=== PATIENT | female | born 1965 | race Caucasian/White ===

== ENCOUNTER 2020-12-02 07:42 | Observation (INO) ==
[~2020-12-02 07:42] MED LIST: MORPHINE SULFATE 15 MG TABLET.SA PO PRN; RINGER'S SOLUTION,LACTATED 1,000 ML IV PRN; ROPIVACAINE/CLONIDIN/KETOROLAC 50 ML SYRINGE IJ ONE; ROPIVACAINE/CLONIDIN/KETOROLAC 50 ML SYRINGE IJ PRN; TRANEXAMIC ACID IN NACL,ISO-OS 1,000 MG/100 ML BAG IV PRN; ceFAZolin SODIUM 1 GM VIAL IV PRN; ceFAZolin SODIUM 1 GM VIAL ONE
[2020-12-02] MEDS ORDERED: DEXTROSE 5%-0.5 NORMAL SALINE 1,000 ML IV PRN (09:55)
[2020-12-02] MEDS ORDERED: ceFAZolin SODIUM 1 GM VIAL ONE (10:44)
[2020-12-02] MEDS ORDERED: ROPIVACAINE/CLONIDIN/KETOROLAC 50 ML SYRINGE IJ ONE (10:44)
--- NOTE | 2020-12-02 10:52 | ANES ---
Anesthesia Pre Procedure Eval Vitals/Labs: Last Vital Signs Temp 36.6 C 12/02/20 07:54 Pulse 85 12/02/20 07:54 Resp 16 12/02/20 07:54 BP 119/60 12/02/20 07:54 Pulse Ox 96 12/02/20 07:54 HOME MEDICATIONS blood sugar diagnostic See Dose Instructions .ROUTE .MEDSUPPLY #20 ea 05/03/18 [Last Taken Unknown] fluticasone propionate 50 mcg/actuation nasal spray,suspension 2 spray BONIFACIO DAILY PRN 05/03/18 [Last Taken Unknown] metformin 500 mg tablet,extended release 24 hr 1,000 mg PO BID tab 05/03/18 [Last Taken 03/05/19] omeprazole 40 mg capsule,delayed release 40 mg PO DAILY 05/03/18 [Last Taken 03/05/19] pen needle, diabetic 31 gauge x 5/16" See Dose Instructions .ROUTE .MEDSUPPLY #30 ea 05/03/18 [Last Taken Unknown] polyethylene glycol 3350 17 gram/dose oral powder 17 g PO DAILY PRN g 05/03/18 [Last Taken 03/03/19] rosuvastatin 40 mg tablet 40 mg PO DAILY 05/03/18 [Last Taken 03/05/19] Gabapentin 800 mg PO TID 03/07/19 [Last Taken Unknown] amitriptyline 25 mg tablet 25 mg PO HS 09/24/20 [Last Taken Unknown] galcanezumab-gnlm 120 mg/mL subcutaneous pen injector 120 mg SUBCUT QMONTH 09/24/20 [Last Taken Unknown] insulin glargine 100 unit/mL (3 mL) subcutaneous pen 70 unit SUBCUT QPM ml 09/24/20 [Last Taken Unknown] estradiol 0.5 mg tablet 0.5 mg PO DAILY #30 tab 11/05/20 [Last Taken Unknown] baclofen 10 mg tablet 10 mg PO DAILY tab 11/06/20 [Last Taken Unknown] hydrocodone 7.5 mg-acetaminophen 325 mg tablet 1 tab PO Q8H PRN tab 11/06/20 [Last Taken Unknown] levocetirizine 5 mg tablet 5 mg PO DAILY tab 11/06/20 [Last Taken Unknown] propranolol 10 mg tablet 10 mg PO HS tab 11/06/20 [Last Taken 12/01/20 11:00] sumatriptan succinate 100 mg tablet See Rx Instructions PO .COMPLEX 11/06/20 [Last Taken Unknown] valsartan 320 mg-hydrochlorothiazide 25 mg tablet 1 tab PO DAILY tab 11/06/20 [Last Taken 12/01/20 11:00] Allergies/Adverse Reactions: Allergies Allergy/AdvReac Type Severity Reaction Status Date / Time shrimp Allergy Intermediate hives Verified 12/02/20 07:59 tramadol Allergy Intermediate RASH Verified 12/02/20 07:59 methocarbamol Allergy Mild Hives Verified 12/02/20 07:59 - Planned Procedure Planned Procedure: L Arthroplasty Total Knee Medication List Reviewed:: Yes Allergies Verified: Yes Medical History (Last Reviewed 12/02/20 @ 10:50 by Toby Gallagher CRNA) Chronic kidney disease Onset Date: ~2017 Diabetes type 2, uncontrolled Onset Date: ~2014 Diabetic neuropathy Onset Date: ~2014 GERD (gastroesophageal reflux disease) Onset Date: ~2014 Hyperlipidemia associated with type 2 diabetes mellitus Onset Date: ~2015 Hypertension Onset Date: ~2014 Migraine without aura Onset Date: ~2015 Seasonal allergies Onset Date: Unknown Hormone replacement therapy Onset Date: ~2015 Menometrorrhagia Onset Date: ~1996 Polyarthralgia Onset Date: Unknown Postsurgical menopause Onset Date: ~2015 Shingles Onset Date: ~05/2020 Surgical History (Last Reviewed 12/02/20 @ 10:50 by Toby Gallagher CRNA) Status post total right knee replacement (Chronic) 03/06/19 Katelin Hx of colonoscopy Onset Date: ~2013 H/O foot surgery Onset Date: Unknown stepped on needle H/O: hysterectomy Onset Date: ~1996 MICKY, done [place], [place] History of ankle surgery Onset Date: ~2015 broke ankle after fall - left ankle surgery History of arthroplasty of right knee Onset Date: ~03/06/19 : Right total knee arthroplasty Family History (Last Reviewed 12/02/20 @ 10:50 by Toby Gallagher CRNA) Mother Seizure disorder - Family Anesthesia History Family History:: no untoward family reactions to anesthesia, no familial bleeding tendencies, no family history of clotting disorders, no family history of premature - Airway/Neck/Teeth Within Normal Limits:: Yes Teeth Condition: intact Neck Exam: full range of motion Mallampatti Score: 3 Thyromental (T-M) distance: > 6 cm Mandibulo Hyoid distance: > 3 cm - Respiratory Respiratory History: sleep apnea - by hx Respiratory Physical: lungs clear Smoking Status: Never smoker Sleep Apnea currently treated: No Sleep Apnea by current assessment: Yes Discussed Risks/Treatment of ROMERO: Yes - Cardiovascular Cardiac History: hypertension Tolerate Activity: Fair Heart Sounds: S1 & S2, Regular - Gastrointestinal NPO since: 2399 - Anesthesia Assessment and Plan ASA Class: PS, III Anesthesia Type Plan: Block - Adductor canal for post op pain relief, Spinal
[2020-12-02] MEDS ORDERED: MIDAZOLAM HCL/PF 5 MG/ML VIAL ONE (10:53)
[2020-12-02] MEDS ORDERED: PROPOFOL VIAL IV ONE (10:54)
[2020-12-02] MEDS ORDERED: BUPIVACAINE HCL/EPINEPHRINE 10 ML VIAL IJ ONE ×2 (10:54→10:55)
[2020-12-02] MEDS ORDERED: ZOLPIDEM TARTRATE 5 MG TABLET PO PRN (12:29)
[2020-12-02] MEDS ORDERED: MAG HYDROX/ALUMINUM HYD/SIMETH 30 ML UDC PO PRN (12:29)
[2020-12-02] MEDS ORDERED: ONDANSETRON HCL/PF 2 MG/ML VIAL IV PRN (12:29)
[2020-12-02] MEDS ORDERED: diphenhydrAMINE HCL 50 MG/ML VIAL IV PRN (12:29)
[2020-12-02] MEDS ORDERED: RINGER'S SOLUTION,LACTATED 1,000 ML IV PRN (12:29)
[2020-12-02] MEDS ORDERED: MAGNESIUM HYDROXIDE 30 ML UDC PO PRN (12:29)
[2020-12-02] MEDS ORDERED: ACETAMINOPHEN 500 MG TABLET PO PRN (12:29)
--- NOTE | 2020-12-02 12:29 | OR ---
Operative Report - Dictated Report Narrative: Date: 12/02/2020 Preoperative diagnosis: Left knee degenerative joint disease. Postoperative diagnosis: Left knee degenerative joint disease. Procedure: Left total knee arthroplasty. Surgeon: Eddi Thomason M.D. Braid Maker: Manohar Simms PA-C (provided and essential set of skilled, educated hands that assisted with transfer, positioning, prepping, draping, manipulation, retraction, placement of jigs, injection, insertion of implants, irrigation, closure wounds, and dressings all of which could not be performed by the available surgical crew) Anesthesia: Spinal with regional block and local periarticular joint injection. Complications: None Specimens: Bone. Estimated blood loss: Minimal. Tourniquet time: 75 minutes at 300 millimeters of mercury. Retained implants: Depuy Attune size 5 narrow left lugged cemented posterior stabilized femoral component. Size 3 fixed-bearing cemented tibial platform. 5 by 5 millimeter posterior stabilized cross-linked tibial insert. 35 millimeter medialized patella button. Indications: Mrs. Mitchell is a 55-year-old female who has had longstanding left knee pain and arthrosis. This patient was followed in my clinic for period of time with significant complaints of left knee pain consistent with arthritic changes. She had failed conservative measures including, but not limited to, activity modification, passage of time, medications, and other conservative measures. Patient wished to proceed with surgical treatment. The risks, benefits, and alternatives were discussed in clinic. The risks of , blood clots, bleeding, infection, nerve/tendon blood vessel/ injury, malposition of components, intraoperative fracture, postoperative limited range of motion, persistent pain, failure of components, and need for additional procedures. Patient wished to proceed consent was obtained after answering all questions. Procedure: After marking the correct extremity on the floor, the patient was taken to the operating room. A timeout was performed. IV antibiotics consisting of Ancef were administered prior to the procedure. A regional followed by spinal anesthetic was induced by anesthesia, per my request, on the operative table with all bony prominences well-padded. Chadwick catheter was placed, and a bump was placed under the operative side buttock. SCDs and ILYA hose were utilized on the nonoperative leg. A well-padded tourniquet was applied to the operative thigh. The operative leg was then pre-scrubbed with alcohol, prepped, and draped in a standard sterile fashion. After exsanguinating the extremity with an Esmarch bandage, the tourniquet was inflated. After marking out the anterior knee for standard incision centered over the patella, the skin was incised and dissected down to the joint retinaculum. The joint retinaculum was marked out as well as the horizontal axis of the patella, and a standard medial parapatellar arthrotomy was then made. The most proximal aspect of the quadriceps tendon and the patella tendon insertion were protected from release. A partial synovectomy was performed as well as a resection of the infrapatellar fat pad. The distal femoral fat pad proximal to the trochlea was also resected using cautery. The soft tissues were elevated off the medial as pect of the proximal tibia using a Llanos elevator ensuring that we did not transect the medial collateral ligament. Upon initial evaluation range of motion was approximately 0 degrees to 130 degrees of flexion. There were signs of advanced arthrosis in the medial and patellofemoral greater than lateral joint spaces. There were large marginal osteophytes which were removed with a rongeur. The knee was hyperflexed and the patella was tucked laterally. Protecting the surrounding soft tissues with Homans, an entry drill was placed down the femoral canal using Whitesides line for guidance into the entry point. The intramedullary femoral alignment stuart was utilized in order to cut the distal femur in 5 degrees of valgus resecting 10 millimeters of bone. Next the distal femur was sized to a size 5. A posterior referencing guide was utilized to place the distal femoral cutting block in 3 degrees of external rotation. This was pinned into place. The rotation was confirmed both visually and based on anatomic landmarks. The 4 in 1 cutting jig of the appropriate size was utilized in order to make all bony cuts. The abbi wing was used to ensure no notching. Retractors were utilized in order to protect surrounding soft tissues. This cut did not result in any excessive notching. We then cut the box centered over the distal femur. This allowed for resection of the anterior and posterior cruciate ligaments. I then turned my attention to the preparation of the tibia. Using an extra medullary tibial alignment stuart, 3 millimeters of bone was resected off the medial articular surface. This was made perpendicular to the mechanical axis of the joint with the alignment stuart centered over the ankle mortise. The alignment stuart was checked and was noted to be parallel to the mec hanical axis, centered over the medial one third of the tibial tubercle, paralleling the anterior surface of the tibia. We then turned our attention to the remaining meniscus and soft tissues. These were removed while protecting the surrounding ligaments and soft tissues. The marginal osteophytes off the anterior, posterior, medial, lateral aspects of the femur and tibia were removed. The tibia was sized out to a size 3. Next the tibia was drilled and punched in an externally rotated position. Next the trial femur and a series of tibial inserts were utilized in order to allow for full extension and maximal flexion. It was found that a 5 millimeter insert gave the best range of motion and stability at multiple flexion points as well as at full extension there was less than 2 mm of gapping both medially and laterally. There is minimal anterior translation with the knee at 90 degrees of flexion and no signs of being able to dislocate the knee. The patella was then prepared. The initial thickness was 21 millimeters. This was reamed down to 12 millimeters parallel to the anterior surface of the patella. It was sized out to a size 35 medialized patella button. This was then drilled and trialed. Without any medial restraint the patella tracked appropriately and did not sublux or dislocate. At this point, it was felt these were the appropriate sized implants, and all trials were removed. The standard periarticular joint injection consisting of ropivacaine, Toradol, and epinephrine were injected into the periarticular joint tissues. The bony surfaces were thoroughly irrigated with a pulsatile-suction saline irrigation device. A bone plug from the prior resected anterior chamfer cut was placed into the drill hole at the distal femur. The bony surfaces were then dried in preparation for placement of the implants. The cement was vacuum mixed per the health companion's instructions. The cement was placed on the dry bony surfaces and posterior aspect of the implants. The implants were impacted into place, removing all extruded cement. At this point anesthesia administered tranexamic acid per protocol intravenously. The knee was placed in extension with axial loading with the trial insert while the cement cured. Once the cement cured, all remaining extruded cement was removed. The knee was placed through a range of motion with the trial insert to ensure appropriate range of motion and stability. Final range of motion was approximately 0 to 130 degrees. The knee was again thoroughly irrigated with pulsatile saline lavage. The final polyethylene insert was then impacted into place ensuring no retained soft tissues. The remaining periarticular joint injection was injected. A medium Hemovac drain was placed exiting superior laterally. The knee was then placed over a triangle and the arthrotomy was closed with interrupted #1 Vicryl after thoroughly irrigating the joint. The deep and subcutaneous tissues were closed with interrupted 0 and 3-0 Vicryl respectively. Skin was closed with a running subcutaneous 3-0 Monocryl and Prineo Dermabond dressing. 4 x 4's, Sof-Rol, and a full leg Rogelio wrap were applied. All sponge, needle, blade, and instrument counts were correct prior to closing the wounds. Postoperative condition: The patient was awoken and transferred to the postanesthesia care unit in stable condition. Plan is to be admitted to the inpatient medical/surgical floor postoperatively for 24 hours of IV antibiotics, physical therapy, occupational therapy, and medical comanagement. Patient will be weightbearing as tolerated with range of motion as tolerated. DVT prophylaxis will be with SCDs, ILYA hose, and pharmacological anticoagulation. Anticipated hospital stay is approximately 1-3 days.
[2020-12-02] MEDS ORDERED: POLYETHYLENE GLYCOL 3350 119 GM BTL PO PRN (12:31)
[2020-12-02] MEDS ORDERED: FLUTICASONE PROPIONATE 120 SPRAY INHALER NS PRN (12:31)
--- NOTE | 2020-12-02 13:01 | ANES ---
Anesthesia Procedure Note Procedure Note: ANESTHESIA PROCEDURE NOTE Date of Procedure: 12/02/2020 Time of procedure: 11:10 AM. Performed by: PORTER Lanza CRNA, MSN Unit Operator: Suzie HYATT. Preprocedure diagnosis: Post total knee arthroplasty pain. Post procedure diagnosis: Same. Procedure: Left adductor Canal Block. Indications: Post left total knee arthroplasty pain relief. Findings: See below. Details of the procedure: The patient was brought to OR #4 and placed in supine position. The patient's left femoral area to the knee was prepped with chlorhexidine and using ultrasound guidance the left femoral artery and nerve was identified and then followed to the level of the adductor canal. Lidocaine 1% was infiltrated to the skin of the intended injection site. Under ultrasound guidance the saphenous nerve was approached with visualization of a 2 inch shielded block needle. Once saphenous nerve was identified with proximity to the needle tip, the saphenous nerve was surrounded with 20 mL bupivacaine 0.5% with 1-200,000 epinephrine. Please see radiology/ultrasound report for details and retained images of the procedure. EBL: 0 Fluids: N/A. Specimen: N/A. Post procedure condition: The patient tolerated the procedure well. No complications were noted. Thank you for this consultation. Toby Gallagher CRNA, ARNP, MSN
--- NOTE | 2020-12-02 13:02 | ANES ---
Post Anesthesia Discharge - Transfer of Care Transfer of Care handoff given to nurse: Yes - Discharge from PACU Discharge from PACU when meets criteria: Yes - Awake and comfortable.
--- NOTE | 2020-12-02 14:35 | ANES ---
Post Anesthesia Assessment - Vital Signs Vitals: Last Vital Signs Temp 36.2 C 12/02/20 13:15 Pulse 85 12/02/20 13:15 Resp 12 12/02/20 13:15 BP 140/80 H 12/02/20 13:15 Pulse Ox 99 12/02/20 13:15 Airway Patency: Normal - Mental Status Level Of Consciousness: Awake, Alert, Appropriate - Pain Level Pain Score: 0 - N/V Assessment Nausea/Vomiting Presence: None Dehydration:: No
[2020-12-02] MEDS: ceFAZolin SODIUM 1 GM in DEXTROSE 5 % IN WATER 100 ML IV SCH ×4 (14:49→20:57)
[2020-12-02] MEDS: GABAPENTIN 400 MG CAPSULE PO SCH ×2 (14:49→17:24)
[2020-12-02] MEDS: oxyCODONE HCL/ACETAMINOPHEN 1 TAB TABLET PO PRN ×2 (14:49→21:15)
[2020-12-02] MEDS: KETOROLAC TROMETHAMINE 15 MG/ML VIAL IV SCH ×2 (14:51→17:33)
[2020-12-02] MEDS ORDERED: INSULIN GLARGINE,HUM.REC.ANLOG 100 UNITS/ML VIAL SC SCH (17:00)
[2020-12-02] MEDS: MORPHINE SULFATE 15 MG TABLET.SA PO SCH (20:47)
[2020-12-02] MEDS: ASPIRIN 81 MG TABLET.DR PO SCH (20:55)
[2020-12-02] MEDS ORDERED: PROPRANOLOL HCL 10 MG TABLET PO SCH (21:00)
[2020-12-02] MEDS ORDERED: SENNOSIDES/DOCUSATE SODIUM 1 TAB TABLET PO SCH (21:00)
[2020-12-02] MEDS ORDERED: AMITRIPTYLINE HCL 25 MG TABLET PO SCH (21:00)
[2020-12-03] MEDS: KETOROLAC TROMETHAMINE 15 MG/ML VIAL IV SCH ×2 (00:50→06:32)
[2020-12-03] MEDS: MORPHINE SULFATE 2 MG/ML DISP.SYRIN IV PRN ×2 (00:54→03:39)
[2020-12-03] MEDS: ceFAZolin SODIUM 1 GM in DEXTROSE 5 % IN WATER 100 ML IV SCH ×2 (03:39)
[2020-12-03] MEDS: oxyCODONE HCL/ACETAMINOPHEN 1 TAB TABLET PO PRN ×3 (05:09→15:37)
[2020-12-03 06:33] LABS: Hematocrit 34.6 % (37.0-47.0); Hemoglobin 10.5 gm/dL (12.5-16.0); Mean Cell Volume 89.4 fl (78-100); Mean Corpuscular Hemoglobin 27.1 pg (27-31); Mean Corpuscular Hgb Conc 30.3 g/dl (32-36); Mean Platelet Volume 8.6 fl (8-12.5); Platelet Count 215 K/mm3 (150-450); Red Blood Count 3.87 M/mm3 (4.2-5.4); Red Cell Distribution Width 16.5 % (11.5-14.0); White Blood Count 12.2 K/mm3 (4.0-10.5)
[2020-12-03 06:40] LABS: Anion Gap 7.8 mmol/L (6.8-13.8); BUN/Creatinine Ratio 19.2 (9.0-21.6); Calcium * 8.7 mg/dL (7.9-10.9); Carbon Dioxide 30.2 mmol/L (24-32.6); Estimated Creat Clear 32.5
[2020-12-03] MEDS ORDERED: PANTOPRAZOLE SODIUM 40 MG TABLET.EC PO SCH (07:00)
[2020-12-03] MEDS ORDERED: LOSARTAN POTASSIUM 50 MG TABLET PO SCH (09:00)
[2020-12-03] MEDS ORDERED: HYDROCHLOROTHIAZIDE PO SCH (09:00)
[2020-12-03] MEDS ORDERED: BACLOFEN 10 MG TABLET PO SCH (09:00)
[2020-12-03] MEDS ORDERED: [UNRECOGNIZED DRUG - OTHER] PO SCH (09:00)
[2020-12-03] MEDS ORDERED: HYDROCHLOROTHIAZIDE 25 MG TABLET PO SCH (09:00)
[2020-12-03] MEDS ORDERED: LORATADINE 10 MG TABLET PO SCH (09:00)
[2020-12-03] MEDS ORDERED: VALSARTAN PO SCH (09:00)
[2020-12-03] MEDS: MORPHINE SULFATE 15 MG TABLET.SA PO SCH (09:35)
[2020-12-03] MEDS: GABAPENTIN 400 MG CAPSULE PO SCH ×2 (09:45→12:37)
[2020-12-03] MEDS: ASPIRIN 81 MG TABLET.DR PO SCH (09:49)
--- NOTE | 2020-12-03 12:25 | DS ---
(1) Status post left knee replacement Problem: Acute (2) Hypertension Problem: Chronic (3) Diabetes mellitus type 2 in obese Problem: Chronic (4) GERD (gastroesophageal reflux disease) Problem: Chronic (5) Hyperlipidemia Problem: Chronic Date of Discharge:: 12/03/20 Hospital Course: Mrs. Mitchell was admitted to the floor after undergoing left total knee arthroplasty. Tolerated this well. Was admitted to the floor postoperatively for 24 hours of IV antibiotics, pain control, medical comanagement, and occupational and physical therapy. OT and PT were consulted to assist with activities of daily living and ambulation. Was made weightbearing as tolerated with range of motion as tolerated. Pain was initially controlled with IV regimen. This was transitioned to oral once tolerating a by mouth intake. Was resumed on home diet and medications. Had a Chadwick catheter inserted and the operating room which was discontinued on postoperative day 1. A drain was placed intraoperatively into the knee which was discontinued on postoperative day 1. Lovenox SCD and ILYA hose were utilized for DVT prophylaxis. Vital signs remained stable to the hospital course. Serial labs were obtained which showed a final hemoglobin of 10.5 grams. BMP was reviewed and was stable. Physical examination throughout the hospital course showed an extremity that had sensation that was intact to light touch, palpable pulses, a benign wound, motor intact to the toes, ankle, and knee. Knee range of motion was approximately 5 degrees to 75 degrees. Once an oral pain regimen was tolerated and physical therapy goals were met, it was felt that they were stable for discharge to home. Instructions: Continue with weightbearing as tolerated and range of motion as tolerated. It is OK to shower on the wound if it is not draining. If you note any drainage or for comfort you can cover with dry gauze and tape. Change every 2-3 days as needed. Continue with physical therapy. Resume home diet. Report any fever over 101.5 Fahrenheit, uncontrolled pain, increased drainage, foul odor of drainage, new or increased calf pain or shortness of breath, or any other significant complaints. A 325mg dialy aspirin will be started after finishing anticoagulation if not allergic. Continue with ILYA hose on the operative extremity until instructed otherwise. No driving until instructed otherwise. Follow up in approximately 10-14 days. Procedures Performed: see notes below List Procedures: Left total knee arthroplasty Results and Findings: Lab Pending Results 12/03/20 06:30: WBC 12.2 H, RBC 3.87 L, Hgb 10.5 L, Hct 34.6 L, MCV 89.4, MCH 27.1, MCHC 30.3 L, RDW 16.5 H, Plt Count 215, MPV 8.6 12/03/20 06:30: Sodium 136, Plasma Sodium 135, Potassium 4.0, Chloride 102, Carbon Dioxide 30.2, Anion Gap 7.8, BUN 29 H, Creatinine 1.51 H, Est GFR (Non-Af Amer) 38 L, BUN/Creatinine Ratio 19.2, Random Glucose 56 L, Calcium 8.7 Discharge Location: [facility] [place] Disposition: SNF Condition: Good Level of Care: SNF Discharge Activity: Activity as tolerated, Weight bearing, Other - With wheeled walker Discharge Diet: Low salt, Low fat/chol Referrals: Jack Schaefer MD [Primary Care Provider] - Additional Patient Instructions (free text): [facility]- PT, OT to evaluate and treat. Follow up with [facility] Orthopedic with Manohar Simms WednesdayDecember 24 at 9:30 a.m. Prescriptions (Any new or edited meds): Enoxaparin Sodium [Lovenox] 40 mg SQ QDIPM #7 ml Transmission Status: Pending to [facility] Morphine Sulfate [Ms Contin] 15 mg PO Q12H #20 tablet.sa Transmission Status: Received by [facility] oxyCODONE HCL/ACETAMINOPHEN [Percocet 5 MG/325 MG] 2 tab PO Q4H PRN #56 tab PRN Reason: Moderate Pain (Pain Scale 4-6) Transmission Status: Received by [facility] Sennosides/Docusate Sodium [Senokot-S] 2 tab PO HS #30 tab Transmission Status: Pending to [facility] Complete Home Medications List: Complete Home Medication List: blood sugar diagnostic See Dose Instructions .ROUTE .MEDSUPPLY #20 ea 05/03/18 fluticasone propionate 50 mcg/actuation nasal spray,suspension 2 spray BONIFACIO DAILY PRN 05/03/18 metformin 500 mg tablet,extended release 24 hr 1,000 mg PO BID tab 05/03/18 omeprazole 40 mg capsule,delayed release 40 mg PO DAILY 05/03/18 pen needle, diabetic 31 gauge x 11/24" See Dose Instructions .ROUTE .MEDSUPPLY #30 ea 05/03/18 polyethylene glycol 3350 17 gram/dose oral powder 17 g PO DAILY PRN g 05/03/18 rosuvastatin 40 mg tablet 40 mg PO DAILY 05/03/18 Gabapentin 800 mg PO QID 03/07/19 amitriptyline 25 mg tablet 25 mg PO HS 09/24/20 galcanezumab-gnlm 120 mg/mL subcutaneous pen injector 120 mg SUBCUT QMONTH 09/24/20 insulin glargine 100 unit/mL (3 mL) subcutaneous pen 45 unit SUBCUT QPM ml 09/24/20 estradiol 0.5 mg tablet 0.5 mg PO DAILY #30 tab 11/05/20 baclofen 10 mg tablet 10 mg PO DAILY tab 11/06/20 levocetirizine 5 mg tablet 5 mg PO DAILY tab 11/06/20 propranolol 10 mg tablet 10 mg PO HS tab 11/06/20 sumatriptan succinate 100 mg tablet See Rx Instructions PO .COMPLEX 11/06/20 valsartan 320 mg-hydrochlorothiazide 25 mg tablet 1 tab PO DAILY tab 11/06/20 Enoxaparin Sodium [Lovenox] 40 mg SQ QDIPM #7 ml 12/03/20 Morphine Sulfate [Ms Contin] 15 mg PO Q12H #20 tablet.sa 12/03/20 Sennosides/Docusate Sodium [Senokot-S] 2 tab PO HS #30 tab 12/03/20 oxyCODONE HCL/ACETAMINOPHEN [Percocet 5 MG/325 MG] 2 tab PO Q4H PRN #56 tab 12/03/20 Amb Orders for Discharge: PT Evaluation and Treatment* Facility: [facility], Location: Rehabilitation Services Forms: Patient Portal Registration
[2020-12-03 14:29] VITALS: BP 156/80
[2020-12-03] MEDS ORDERED: ROSUVASTATIN CALCIUM 20 MG TABLET PO SCH (21:00)
[2020-12-09] MEDS ORDERED: GALCANEZUMAB 120 MG/ML SC SCH (09:00)
== END 2020-12-03 16:05 ==
LOC: SUR 07:42 → MS 07:42
PROVIDERS: ADMIT Orthopaedic Surgery; ATTEND Orthopaedic Surgery